=== PATIENT | female | born 1990 | race Caucasian/White ===

== ENCOUNTER 2018-12-18 06:50 | Inpatient (IN) | payer OTHER ==
[2018-12-18 10:27] LABS: ADD MAN DIFF? NO
[2018-12-18] MEDS: LACTATED RINGER'S 1,000 ML IV ×3 (10:27→19:11)
[2018-12-18] MEDS ORDERED: BUTORPHANOL 2 MG INJ IV (10:30)
[2018-12-18] MEDS ORDERED: OXYTOCIN 30 UNITS/LR 500 ML IV (10:30)
[2018-12-18] MEDS ORDERED: CARBOPROST 250 MCG INJ IM (10:30)
[2018-12-18] MEDS ORDERED: MISOPROSTOL 200 MCG TAB PR (10:30)
[2018-12-18] MEDS ORDERED: LIDOCAINE 1% (MPF) 30 ML INJ INJ (10:30)
[2018-12-18 10:40] LABS: BASOPHILS % 0.2 % (0.0-2.0); HEMATOCRIT 38.4 % (37.0-47.0); HEMOGLOBIN 12.6 g/dl (12.0-16.0); LYMPHOCYTES # 2.2 10^3/ul (0.8-2.9); LYMPHOCYTES % 23.9 % (15.0-51.0); MEAN CORPUSCULAR HEMOGLOBIN 30.6 pg (29.0-33.0); MEAN CORPUSCULAR HGB CONC 32.8 g/dl (32.0-37.0); MEAN CORPUSCULAR VOLUME 93.2 fl (82.0-101.0); MEAN PLATELET VOLUME 11.4 fl (7.4-10.4); MONOCYTE # 0.5 10^3/ul (0.3-0.9); MONOCYTES % 4.9 % (0.0-11.0); NEUTROPHIL # 6.6 10^3/ul (1.6-7.5); NEUTROPHILS % 70.7 % (39.0-77.0); PLATELET COUNT 168 10^3/UL (140-415); RED BLOOD COUNT 4.12 10^6/ul (4.20-5.40); RED CELL DISTRIBUTION WIDTH 13.8 % (11.5-14.5)
[2018-12-18 10:40] LABS: WHITE BLOOD COUNT 9.4 10^3/ul (4.8-10.8)
[2018-12-18] MEDS ORDERED: ROPIVACAINE 0.2% 100 ML (10:51)
[2018-12-18 10:58] LABS: INR 0.92; PROTIME 12.5 Sec (11.9-14.9)
[2018-12-18 10:59] LABS: PARTIAL THROMBOPLASTIN TIME 29.8 Sec (23.0-35.0)
[2018-12-18] MEDS ORDERED: DIPHENHYDRAMINE 50 MG INJ IV (11:00)
[2018-12-18] MEDS ORDERED: ONDANSETRON 4 MG INJ IV (11:00)
[2018-12-18] MEDS ORDERED: NALOXONE (0.4 MG/ML) INJ IV (11:00)
[2018-12-18 15:46] LABS: RAPID PLASMA REAGIN NONREACTIVE (NR)
[2018-12-18] MEDS: FENTAnyl 2MCG/ML-ROPIV 0.2% 100 ML BAG EPI ×2 (16:43→21:28)
[2018-12-18] MEDS: OXYTOCIN 30 UNITS/LR 500 ML IV ×2 (18:30→23:35)
[2018-12-18 18:45] LABS: HEPATITIS B SURFACE ANTIGEN NEGATIVE (NEGATIVE)
[2018-12-18] MEDS: METHYLERGONOVINE 0.2 MG INJ IM (23:23)
[2018-12-19] MEDS: OXYTOCIN 30 UNITS/LR 500 ML IV (00:06)
[2018-12-19] MEDS: DEXTROSE 5%-LR 1,000 ML IV (01:22)
[2018-12-19] MEDS: LACTATED RINGER'S 1,000 ML IV* (01:22)
[2018-12-19] MEDS ORDERED: MAGNESIUM HYDROXIDE 30ML CUP PO (01:30)
[2018-12-19] MEDS ORDERED: CARBOPROST 250 MCG INJ IM (01:30)
[2018-12-19] MEDS ORDERED: ACETAMINOPHEN 325 MG TAB PO (01:30)
[2018-12-19] MEDS ORDERED: OXYCODONE/ASPIRIN (4.88/325) TAB PO (01:30)
[2018-12-19] MEDS ORDERED: DIBUCAINE 1% 30 GM OINT TOP (01:30)
[2018-12-19] MEDS ORDERED: ZOLPIDEM 5 MG TAB PO (01:30)
[2018-12-19] MEDS ORDERED: OXYTOCIN 30 UNITS/LR 500 ML IV (01:30)
[2018-12-19] MEDS ORDERED: DIPHENHYDRAMINE 50 MG INJ IV (01:30)
[2018-12-19] MEDS ORDERED: METHYLERGONOVINE 0.2 MG INJ IM (01:30)
[2018-12-19] MEDS ORDERED: ONDANSETRON 4 MG INJ IV (01:30)
[2018-12-19] MEDS ORDERED: MISOPROSTOL 200 MCG TAB PR (01:30)
[2018-12-19] MEDS: WITCH HAZEL/GLYCERIN PAD PR (03:55)
[2018-12-19] MEDS: BENZOCAINE 20% 56 ML SPRAY TOP (03:55)
[2018-12-19] MEDS: LANOLIN HPA 1 PKT TOP (03:55)
[2018-12-19] MEDS: IBUPROFEN 600 MG TAB PO ×4 (06:09→23:41)
[2018-12-19] MEDS: SENNA/DOCUSATE NA (8.6MG/50MG) TAB PO (12:12)
[2018-12-20] MEDS: IBUPROFEN 600 MG TAB PO ×2 (06:08→11:57)
[2018-12-20 06:43] LABS: ADD MAN DIFF? NO
[2018-12-20 06:45] LABS: WHITE BLOOD COUNT 14.2 10^3/ul (4.8-10.8)
[2018-12-20 06:45] LABS: BASOPHILS % 0.2 % (0.0-2.0); EOSINOPHILS # 0.1 10^3/ul (0.0-0.5); EOSINOPHILS % 0.8 % (0.0-7.0); HEMATOCRIT 32.3 % (37.0-47.0); HEMOGLOBIN 10.8 g/dl (12.0-16.0); LYMPHOCYTES # 3.1 10^3/ul (0.8-2.9); MEAN CORPUSCULAR HEMOGLOBIN 31.7 pg (29.0-33.0); MEAN CORPUSCULAR HGB CONC 33.4 g/dl (32.0-37.0); MEAN CORPUSCULAR VOLUME 94.7 fl (82.0-101.0); MEAN PLATELET VOLUME 10.8 fl (7.4-10.4); MONOCYTE # 0.7 10^3/ul (0.3-0.9); MONOCYTES % 5.1 % (0.0-11.0); NEUTROPHIL # 10.1 10^3/ul (1.6-7.5); NEUTROPHILS % 71.4 % (39.0-77.0); PLATELET COUNT 136 10^3/UL (140-415); RED BLOOD COUNT 3.41 10^6/ul (4.20-5.40); RED CELL DISTRIBUTION WIDTH 14.1 % (11.5-14.5)
[2018-12-20] MEDS: SENNA/DOCUSATE NA (8.6MG/50MG) TAB PO (10:21)
[2018-12-21] MEDS ORDERED: DIPHTH/TET/ACEL PERTUSS (ADULT) 0.5 ML VIAL IM* (09:00)
[2018-12-21] MEDS ORDERED: MEASLES,MUMPS,RUBELLA VACCINE INJ SC* (09:00)
== END 2018-12-20 14:30 | disposition home or self-care (01) | DRG 806 ==
LOC: OBT 06:50 → PP1 12-19 01:09 → L-D 06:50 → OBT 08:37 → L-D 08:37
PROVIDERS: Specialist
PROC: 10E0XZZ Delivery of Products of Conception, External Approach (ICD-10-PCS; principal; 2018-12-18)
PROC: 0KQM0ZZ Repair Perineum Muscle, Open Approach (ICD-10-PCS; 2018-12-18)
PROC: 0UQMXZZ Repair Vulva, External Approach (ICD-10-PCS; 2018-12-18)
DX: O70.0 First degree perineal laceration during delivery (principal); O71.4 Obstetric high vaginal laceration alone; Z37.0 Single live birth; Z3A.39 39 weeks gestation of pregnancy
CPT/HCPCS: 62322; 76815; 76818; 85025; 85610; 85730; 86592; 86850; 86900; 86901; 87340